=== PATIENT | female | born 1985 | race Caucasian/White ===

== ENCOUNTER 2018-11-10 19:08 | Inpatient (IN) | payer OTHER ==
[2018-11-10 19:59] LABS: Urine Appearance Cloudy; Urine Bilirubin Negative (Negative); Urine Blood Negative (Negative); Urine Color Yellow; Urine Glucose Negative (Negative); Urine Ketones Negative (Negative); Urine Nitrite Negative (Negative); Urine Protein Negative (Negative); Urine Specific Gravity 1.024 (1.010-1.030); Urine Urobilinogen Negative (Negative)
[2018-11-10 20:04] LABS: ABS Basophils 0.1 10^3/ul (0-0.2); ABS Eosinophils 0.1 10^3/ul (0-0.6); ABS Lymphocytes 1.3 10^3/ul (1.0-4.8); ABS Monocytes 0.3 10^3/ul (0-0.8); ABS Neutrophils 4.3 10^3/ul (1.5-7.7); Hematocrit 41 % (35-47); Hemoglobin 13.4 g/dL (12.0-16.0); Mean Corpuscular HGB Conc 32 g/dL (31-36); Mean Corpuscular Hemoglobin 30 pg (27-31); Mean Corpuscular Volume 94 fL (80-97); Mean Platelet Volume 9.1 fL (7.4-10.4); Platelet Count 243 10^3/uL (150-450); Red Cell Distribution Width 14 % (10.5-15); White Blood Count 6.1 10^3/uL (3.5-10.8)
[2018-11-10 20:19] LABS: ALT 29 U/L (7-52); AST 38 U/L (13-39); Albumin 4.1 g/dL (3.2-5.2); Albumin/Globulin Ratio 1.6 (1-3); Alkaline Phosphatase 53 U/L (34-104); BUN/Creatinine Ratio 21.9 (8-20); Blood Urea Nitrogen 14 mg/dL (6-24); CO2 Carbon Dioxide 31 mmol/L (22-32); Calcium 9.1 mg/dL (8.6-10.3); Chloride 110 mmol/L (101-111); EGFR African American 128.5 (>60); EGFR Non-African American 106.2 (>60); Globulin 2.6 g/dL (2-4); Glucose 107 mg/dL (70-100); Sodium 143 mmol/L (135-145); Total Protein 6.7 g/dL (6.4-8.9)
[2018-11-10 20:20] LABS: Anion Gap 2 mmol/L (2-11); Potassium 5.5 mmol/L (3.5-5.0)
[2018-11-10 20:20] LABS: Urine Benzodiazepine Screen None Detected (None Detect); Urine Opiates Screen None Detected (None Detect)
[2018-11-10 20:23] LABS: HCG Pregnancy < 0.60 mIU/mL
[2018-11-10 20:40] LABS: Acetaminophen < 15 mcg/mL; Alcohol < 10 mg/dL (<10); Salicylate < 2.50 mg/dL (<30)
--- NOTE | 2018-11-10 20:48 | ED ---
Psychiatric Complaint - HPI Summary HPI Summary: Pt is a 33 y/o F presenting to the ED brought in by the [place] [employer] on a 9.41. She states that she told someone about wanting to kill her father, but expressed that she had those thoughts three months ago and does not have them now. The pt's father found out about this, and wanted to bring her in for a psych evaluation, which she did not want, so she walked out of the house and the pt's father called the police on her. She reports chronic pain in her upper back and shoulders. She denies SI/HI and any alcohol or drug use. - History Of Current Complaint Chief Complaint: EDMentalHealth Time Seen by Provider: 11/10/18 19:46 Hx Obtained From: Patient Onset/Duration: Sudden Onset, Lasting Days, Resolved Timing: Days Severity Initially: Moderate Severity Currently: None Character: Depressed Aggravating Factor(s): Nothing Alleviating Factor(s): Nothing Associated Signs And Symptoms: Positive: Negative Related History: Positive For: Prior Psychiatric Issues Has Suicidal: Denies: Thoughts Has Homicidal: Denies: Thoughts - Allergies/Home Medications Allergies/Adverse Reactions: Allergies Allergy/AdvReac Type Severity Reaction Status Date / Time No Known Allergies Allergy Verified 11/10/18 19:27 Home Medications: Home Medications NK [No Home Medications Reported] 11/10/18 [History Confirmed 11/10/18] PMH/Surg Hx/FS Hx/Imm Hx Previously Healthy: Yes Endocrine/Hematology History: Denies: Hx Diabetes Cardiovascular History: Denies: Hx Hypertension Musculoskeletal History: Reports: Hx Back Problems Infectious Disease History: No Infectious Disease History: Denies: Traveled Outside the [place] in Last 30 Days - Family History Known Family History: Negative: Cardiac Disease - Social History Alcohol Use: None Hx Substance Use: No Substance Use Type: Reports: None Hx Tobacco Use: No Smoking Status (MU): Never Smoked Tobacco Review of Systems Positive: Myalgia Negative: Depressed All Other Systems Reviewed And Are Negative: Yes Physical Exam - Summary Physical Exam Summary: Appearance: Well appearing, no pain distress. Depressed affect. Skin: warm, dry, reflects adequate perfusion Head/face: normal Eyes: EOMI, ISABELLA ENT: normal Neck: supple, non-tender Respiratory: CTA, breath sounds present Cardiovascular: RRR, pulses symmetrical Abdomen: non-tender, soft Musculoskeletal: normal, strength/ROM intact Neuro: normal, sensory motor intact, A&Ox3 Triage Information Reviewed: Yes Vital Signs On Initial Exam: Initial Vitals Temp Pulse Resp BP Pulse Ox 98.9 F 102 16 126/81 98 11/10/18 19:20 11/10/18 19:20 11/10/18 19:20 11/10/18 19:20 11/10/18 19:20 Vital Signs Reviewed: Yes Diagnostics - Vital Signs Vital Signs Temp Pulse Resp BP Pulse Ox 11/10/18 19:20 98.9 F 102 16 126/81 98 - Laboratory Lab Results: Lab Results 11/10/18 11/10/18 11/10/18 Range/Units 19:48 19:48 19:53 WBC 6.1 (3.5-10.8) 10^3/uL RBC 4.40 (3.70-4.87) 10^6 /uL Hgb 13.4 (12.0-16.0) g/dL Hct 41 (35-47) % MCV 94 (80-97) fL MCH 30 (27-31) pg MCHC 32 (31-36) g/dL RDW 14 (10.5-15) % Plt Count 243 (150-450) 10^3/uL MPV 9.1 (7.4-10.4) fL Neut % (Auto) 71.2 % Lymph % (Auto) 21.0 % [place] % (Auto) 4.9 % Eos % (Auto) 2.0 % Baso % (Auto) 0.9 % Absolute Neuts (auto) 4.3 (1.5-7.7) 10^3/ul Absolute Lymphs (auto) 1.3 (1.0-4.8) 10^3/ul Absolute Monos (auto) 0.3 (0-0.8) 10^3/ul Absolute Eos (auto) 0.1 (0-0.6) 10^3/ul Absolute Basos (auto) 0.1 (0-0.2) 10^3/ul Absolute Nucleated RBC 0.0 10^3/ul Nucleated RBC % 0.0 Sodium (135-145) mmol/L Potassium (3.5-5.0) mmol/L Chloride (101-111) mmol/L Carbon Dioxide (22-32) mmol/L Anion Gap (2-11) mmol/L BUN (6-24) mg/dL Creatinine (0.51-0.95) mg/dL Est GFR ( Amer) (>60) Est GFR (Non-Af Amer) (>60) BUN/Creatinine Ratio (8-20) Glucose (70-100) mg/dL Calcium (8.6-10.3) mg/dL Total Bilirubin (0.2-1.0) mg/dL AST (13-39) U/L ALT (7-52) U/L Alkaline Phosphatase (34-104) U/L Total Protein (6.4-8.9) g/dL Albumin (3.2-5.2) g/dL Globulin (2-4) g/dL Albumin/Globulin Ratio (1-3) TSH Beta HCG, Quant mIU/mL Urine Color Yellow Urine Appearance Cloudy Urine pH 6.0 (5-9) Ur Specific [place] 1.024 (1.010-1.030) Urine Protein Negative (Negative) Urine Ketones Negative (Negative) Urine Blood Negative (Negative) Urine Nitrate Negative (Negative) Urine Bilirubin Negative (Negative) Urine Urobilinogen Negative (Negative) Ur Leukocyte Esterase Negative (Negative) Urine Glucose Negative (Negative) Salicylates (<30) mg/dL Urine Opiates Screen None detected (None Detect) Acetaminophen mcg/mL Ur Barbiturates Screen None detected (None Detect) Ur Phencyclidine Scrn None detected (None Detect) Ur Amphetamines Screen None detected (None Detect) U Benzodiazepines Scrn None detected (None Detect) Urine Cocaine Screen None detected (None Detect) U Cannabinoids Screen None detected (None Detect) Serum Alcohol (<10) mg/dL 11/10/18 Range/Units 19:53 WBC (3.5-10.8) 10^3/uL RBC (3.70-4.87) 10^6 /uL Hgb (12.0-16.0) g/dL Hct (35-47) % MCV (80-97) fL MCH (27-31) pg MCHC (31-36) g/dL RDW (10.5-15) % Plt Count (150-450) 10^3/uL MPV (7.4-10.4) fL Neut % (Auto) % Lymph % (Auto) % [place] % (Auto) % Eos % (Auto) % Baso % (Auto) % Absolute Neuts (auto) (1.5-7.7) 10^3/ul Absolute Lymphs (auto) (1.0-4.8) 10^3/ul Absolute Monos (auto) (0-0.8) 10^3/ul Absolute Eos (auto) (0-0.6) 10^3/ul Absolute Basos (auto) (0-0.2) 10^3/ul Absolute Nucleated RBC 10^3/ul Nucleated RBC % Sodium 143 (135-145) mmol/L Potassium 5.5 H (3.5-5.0) mmol/L Chloride 110 (101-111) mmol/L Carbon Dioxide 31 (22-32) mmol/L Anion Gap 2 (2-11) mmol/L BUN 14 (6-24) mg/dL Creatinine 0.64 (0.51-0.95) mg/dL Est GFR ( Amer) 128.5 (>60) Est GFR (Non-Af Amer) 106.2 (>60) BUN/Creatinine Ratio 21.9 H (8-20) Glucose 107 H (70-100) mg/dL Calcium 9.1 (8.6-10.3) mg/dL Total Bilirubin 0.30 (0.2-1.0) mg/dL AST 38 (13-39) U/L ALT 29 (7-52) U/L Alkaline Phosphatase 53 (34-104) U/L Total Protein 6.7 (6.4-8.9) g/dL Albumin 4.1 (3.2-5.2) g/dL Globulin 2.6 (2-4) g/dL Albumin/Globulin Ratio 1.6 (1-3) TSH Pending Beta HCG, Quant < 0.60 mIU/mL Urine Color Urine Appearance Urine pH (5-9) Ur Specific [place] (1.010-1.030) Urine Protein (Negative) Urine Ketones (Negative) Urine Blood (Negative) Urine Nitrate (Negative) Urine Bilirubin (Negative) Urine Urobilinogen (Negative) Ur Leukocyte Esterase (Negative) Urine Glucose (Negative) Salicylates < 2.50 (<30) mg/dL Urine Opiates Screen (None Detect) Acetaminophen < 15 mcg/mL Ur Barbiturates Screen (None Detect) Ur Phencyclidine Scrn (None Detect) Ur Amphetamines Screen (None Detect) U Benzodiazepines Scrn (None Detect) Urine Cocaine Screen (None Detect) U Cannabinoids Screen (None Detect) Serum Alcohol < 10 (<10) mg/dL Result Diagrams: 11/10/18 19:53 11/10/18 19:53 Lab Statement: Any lab studies that have been ordered have been reviewed, and results considered in the medical decision making process. Course/Dx - Course Course Of Treatment: Pt is a 33 y/o F presenting to the ED on a 9.41 status. The pt reports chronic upper back and shoulder pain. She denies SI/HI and alcohol or drug abuse. Pt will be signed out to Dr. Reno pending [facility]. - Differential Dx/Clinical Impression Differential Diagnosis/HQI/PQRI: Positive: Depression Provider Diagnosis: Depression Discharge - Sign-Out/Discharge Documenting (check all that apply): Sign-Out Patient Signing out patient TO: Pb Reno - Discharge Plan Condition: Stable Referrals: No Primary Care Phys,NOPCP [Primary Care Provider] - - Billing Disposition and Condition Condition: STABLE - Attestation Statements Document Initiated by Scribe: Yes Documenting Scribe: Nieves Eduardo Provider For Whom Candidoibnatali is Documenting (Include Credential): Jaskaran Marrero MD. Scribe Attestation: Nieves Renee scribed for Jaskaran Marrero MD. on 11/10/18 at 2156. Scribe Documentation Reviewed: Yes Provider Attestation: The documentation as recorded by the scribeNieves accurately reflects the service I personally performed and the decisions made by Jaskaran king MD. Status of Scribe Document: Viewed
[2018-11-10 20:56] LABS: TSH (Thyroid Stimulating Horm) 1.33 mcIU/mL (0.34-5.60)
--- NOTE | 2018-11-10 22:25 | ED ---
Progress - Progress Note Progress Note: Receiving sign-out from Dr. Marrero at 2200 pending E. [facility] will involuntarily admit the patient with a Dx of unspecified psychosis, per Dr. Erickson, Psychiatry. Course/Dx - Course Course Of Treatment: Receiving sign-out from Dr. Marrero at 2200 pending [facility]. [facility] will involuntarily admit the patient with a Dx of unspecified psychosis, per Dr. Erickson, Psychiatry. - Diagnoses Provider Diagnoses: Unspecified psychosis Discharge - Sign-Out/Discharge Documenting (check all that apply): Patient Departure - Involuntary Admission, per [facility], Receiving Sign-Out Receiving patient FROM: Jaskaran Marrero - At 2200 Patient Received Moderate/Deep Sedation with Procedure: No - Discharge Plan Condition: Stable Disposition: PSYCHIATRIC FACILITY-[facility] [place] - Billing Disposition and Condition Condition: STABLE Disposition: Psychiatric Facility [facility] [place] - Attestation Statements Document Initiated by Scribe: Yes Documenting Scribe: Ck [place] Provider For Whom Scribe is Documenting (Include Credential): Pb Reno MD Scribe Attestation: Ck Renee scribed for Pb Reno MD on 11/11/18 at 0504. Scribe Documentation Reviewed: Yes Provider Attestation: The documentation as recorded by the Ck phillips accurately reflects the service I personally performed and the decisions made by Pb king MD Status of Scribe Document: Viewed
[2018-11-11] MEDS ORDERED: DIPHENHYDRAMINE 25 MG PO (02:09)
[2018-11-11] MEDS ORDERED: CHLORPROMAZINE 50 MG PO (02:09)
[2018-11-11] MEDS ORDERED: Acetaminophen TAB* 325 MG PO PRN (02:09)
[2018-11-11] MEDS ORDERED: Al Hydrox/Mg Hydrox/Simet LIQ* 30 ML UDC PO PRN (02:09)
[2018-11-11] MEDS: Vitamin THERAPEUTIC TAB PO SCH (08:42)
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
[2018-11-12 08:42] VITALS: BP 98/64
[2018-11-12 12:57] LABS: Cholesterol 184 mg/dL; HDL Cholesterol 45.1 mg/dL; LDL Cholesterol 83 mg/dL; Triglycerides 281 mg/dL
[2018-11-12 13:04] LABS: HCG Pregnancy < 0.60 mIU/mL
[2018-11-12] MEDS: Vitamin THERAPEUTIC TAB PO SCH (13:43)
--- NOTE | 2018-11-12 14:26 | PN ---
BSU: Group Therapy Note - Service Type Service Type: 35797 Group Psychotherapy - Cognitive Behavioral Group Therapy ( CBT):Patient was attentive and participatory in CBT programming this morning, and remained in good behavioral control. Patient expressed positive insights regarding relevant treatment interventions and goals.
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
== END 2018-11-12 16:20 | disposition home or self-care (01) | DRG 751 ==
LOC: ED 19:08 → BSU 11-11 00:20
PROVIDERS: ADMIT Psychiatry & Neurology Psychiatry; ATTEND Psychiatry & Neurology Psychiatry
PROC: GZHZZZZ Group Psychotherapy (ICD-10-PCS; principal; 2018-11-11)
DX: F33.9 Major depressive disorder, recurrent, unspecified (principal); G89.29 Other chronic pain; M25.519 Pain in unspecified shoulder; M54.89 Other dorsalgia; G71.11 Myotonic muscular dystrophy; Z91.411 Personal history of adult psychological abuse
CPT/HCPCS: 36415; 80053; 80061; 80307; 80320; 80329; 81003; 83036; 84443; 84702; 85025; 90853; 99222; 99238; 99284; A9270-GY; G0480